=== PATIENT | female | born 1985 | race Caucasian/White ===

== ENCOUNTER 2021-08-23 17:09 | Outpatient (REF) | payer BC, SELFPAY ==
--- NOTE | 2021-08-23 14:30 | PAPFT_PTH ---
PATIENT: Libby Ritter LOC: [facility] U#:[id number] AGE/SX: 36/F ROOM: RE08/23/[address]: Stefani Weiss CNM : 1985 BED: DIS: 08/23/2021 SPEC #: [id number] RECD: 08/23/21 18:09 STATUS: QUANG REBrennon #: [id number] DAVINA: 08/23/21 14:[address]: Stefani Weiss DEPT: [facility] Cytology RECD BY: Lavinia Thorpe ENTERED: 08/23/21 18:10 SP TYPE: PAPFT OTHR DR: Kianna Dickinson APRN Tissues: 1 - CX/ENDOCX FOR PAP SMEARS Procedures: PAP THIN PREP/[facility] Screening HPV DNA PROBE Comments: [id number]
== END 2021-08-23 17:10 | disposition home or self-care (01) ==
LOC: LBN 17:09
PROVIDERS: PCP Nurse Practitioner Adult Health; Visit Provider Advanced Practice Midwife
DX: Z12.4 Encounter for screening for malignant neoplasm of cervix (principal); Z11.51 Encounter for screening for human papillomavirus (HPV); Z97.5 Presence of (intrauterine) contraceptive device
CPT/HCPCS: 88142; 87624

== ENCOUNTER 2022-04-07 01:27 | Outpatient (CLI) | payer BC, SELFPAY ==
[2022-04-07 09:17] LABS: Anion Gap 5.1 mmol/L (3-11); BUN 13 mg/dL (7-18); CO2 28.9 mmol/L (21.0-32.0); CREATININE 0.7 mg/dL (0.55-1.02); Calculated LDL 76 mg/dL (<100); Chloride 102 mmol/L (98-107); Cholesterol 147 mg/dL (<200); Estimated GFR 114.88 (mL/min/1.73m2); Glucose 98 mg/dL (74-106); HDL Cholesterol 60 mg/dL (40-60); Potassium 3.9 mmol/L (3.5-5.1); Sodium 136 mmol/L (136-145); TSH (W/Ref FT4) 1.41 uIU/mL (0.36-3.74); Triglyceride 55 mg/dL (<150)
== END 2022-04-07 01:28 | disposition home or self-care (01) ==
PROVIDERS: PCP Nurse Practitioner Adult Health; Visit Provider Nurse Practitioner Adult Health
DX: Z13.1 Encounter for screening for diabetes mellitus (principal); Z13.220 Encounter for screening for lipoid disorders; Z83.49 Family history of other endocrine, nutritional and metabolic diseases; Z13.29 Encounter for screening for other suspected endocrine disorder
CPT/HCPCS: 36415; 80048; 80061; 84443

== ENCOUNTER 2022-04-10 09:10 | Outpatient (REF) | payer BC, SELFPAY ==
--- NOTE | 2022-04-10 09:00 | PAPFT_PTH ---
PATIENT: Libby Ritter LOC: [facility] U#:[id number] AGE/SX: 36/F ROOM: RE04/10/[address]: Kianna Dickinson APRN : 1985 BED: DIS: 04/10/2022 SPEC #: [id number] RECD: 04/10/22 17:19 STATUS: QUANG REQ #: [id number] DAVINA: 04/10/22 09:[address]: Kianna Dickinson DEPT: [facility] Cytology RECD BY: Lavinia Thorpe Tissues: 1 - CX/ENDOCX FOR PAP SMEARS Procedures: PAP THIN PREP/[facility] Screening HPV DNA PROBE Comments: [id number]
== END 2022-04-10 09:11 | disposition home or self-care (01) ==
LOC: LBN 09:10
PROVIDERS: PCP Nurse Practitioner Adult Health; Visit Provider Nurse Practitioner Adult Health
DX: Z12.4 Encounter for screening for malignant neoplasm of cervix (principal)
CPT/HCPCS: 88142; 87624

== ENCOUNTER → 2023-09-26 17:21 | Outpatient (CLI) | payer BC, SELFPAY ==
--- NOTE | 2023-09-26 | DI.RAD_ITS ---
Exam(s) XR THUMB LT EXAM: XR THUMB LT CLINICAL HISTORY: M79.645 PAIN IN LEFT FINGERS, PAIN IN LEFT THUMB. TECHNIQUE: 2D digital imaging was performed. Three views. COMPARISON: None. FINDINGS: BONES: No acute fracture is present. No bony destructive lesion is seen. JOINTS: No dislocation present. SOFT TISSUE: Normal. IMPRESSION: No evidence of acute fracture, dislocation, or subluxation. DATA REPOSITORY: RADIATION DOSE DELIVERED:
== END ==
PROVIDERS: PCP Nurse Practitioner Adult Health; Visit Provider Physician Assistant Medical
DX: M79.645 Pain in left finger(s) (principal)
CPT/HCPCS: 73140

== ENCOUNTER 2024-07-07 11:17 | Outpatient (REF) | payer BC, SELFPAY ==
[2024-07-07 16:52] LABS: COVID-19 PCR Negative (Negative); Influenza A PCR Positive (Negative); Influenza B PCR Negative (Negative); RSV PCR Negative (Negative)
[2024-07-07 17:12] LABS: Source Nasopharynx
== END 2024-07-07 11:18 | disposition home or self-care (01) ==
LOC: LBN 11:17
PROVIDERS: PCP Nurse Practitioner Adult Health; Visit Provider Nurse Practitioner Adult Health
DX: J02.9 Acute pharyngitis, unspecified (principal); R05.8 Other specified cough; R53.81 Other malaise; R53.83 Other fatigue
CPT/HCPCS: 87637; 87070